=== PATIENT | male | born 1960 | race Caucasian/White ===

== ENCOUNTER 2022-10-15 07:12 | Day surgery (SDC) | payer MEDICAID ==
[~2022-10-15] VITALS: Ht 172.7 cm; Wt 82.6 kg
[2022-10-15] MEDS ORDERED: fentaNYL CITRATE/PF 100 MCG/2 ML AMP ONE (07:35)
[2022-10-15] MEDS ORDERED: MIDAZOLAM HCL 5 MG/5 ML VIAL ONE (07:35)
[2022-10-15 17:15] VITALS: BP_SYST 103
== END 2022-10-15 10:28 | disposition home or self-care (01) ==
LOC: SDS 07:12
PROVIDERS: ATTEND Internal Medicine
DX: K62.5 Hemorrhage of anus and rectum (principal); K57.30 Diverticulosis of large intestine without perforation or abscess without bleeding; K64.8 Other hemorrhoids; I10 Essential (primary) hypertension; E11.9 Type 2 diabetes mellitus without complications; Z79.84 Long term (current) use of oral hypoglycemic drugs; Z79.899 Other long term (current) drug therapy; Z20.822 Contact with and (suspected) exposure to COVID-19
CPT/HCPCS: 45378; 87426; 82962; 36415; 99152; G0378; J2250; J3010

== ENCOUNTER 2023-03-17 06:53 | Day surgery (SDC) | payer MEDICAID ==
[~2023-03-17] VITALS: Ht 172.7 cm; Wt 83.9 kg
[2023-03-17] MEDS ORDERED: MIDAZOLAM HCL 5 MG/5 ML VIAL ONE (07:22)
[2023-03-17] MEDS ORDERED: fentaNYL CITRATE/PF 100 MCG/2 ML AMP ONE (07:22)
[2023-03-17 12:57] VITALS: O2SAT 97
[2023-03-17 14:00] VITALS: BP_SYST 117; PULSE 65; RESP 17
== END 2023-03-17 10:25 | disposition home or self-care (01) ==
LOC: SDS 06:53 → SMU 06:54 → SDS 10:25
PROVIDERS: ATTEND Internal Medicine
DX: K21.9 Gastro-esophageal reflux disease without esophagitis (principal); K29.70 Gastritis, unspecified, without bleeding; E11.9 Type 2 diabetes mellitus without complications; Z79.84 Long term (current) use of oral hypoglycemic drugs; Z79.899 Other long term (current) drug therapy
CPT/HCPCS: 43239; 99152; 87081; 36415; 88305; 88312; 88313; G0378; J2250; J3010